=== PATIENT | female | born 1970 ===

== ENCOUNTER → 2019-11-22 | Outpatient (CLI) | payer OTHER | END | disposition home or self-care (01) | LOC: LAB EV 13:44 → LAB SHORT 13:44 | DX: J34.89 Other specified disorders of nose and nasal sinuses (principal) | CPT/HCPCS: 87070 ==

== ENCOUNTER 2023-12-15 11:38 | Emergency (ER) | payer OTHER ==
[~2023-12-15] VITALS: Ht 160 cm; Wt 69.8 kg
[2023-12-15 13:50] LABS: Source, Urine Clean Catch
[2023-12-15 13:57] LABS: BASOPHILS ABSOLUTE AUTO 0.03 K/mm3 (0.00-0.23); BASOPHILS PERCENT AUTO 0 % (0-2); EOSINOPHILS ABSOLUTE AUTO 0.04 K/mm3 (0.00-0.68); EOSINOPHILS PERCENT AUTO 1 % (0-6); Hematocrit 42.5 % (33.0-51.0); Hemoglobin 14.6 g/dL (11.5-16.0); IMMATURE GRAN ABSOLUTE AUTO 0.02 K/mm3 (0.00-0.10); IMMATURE GRAN PERCENT AUTO 0 % (0-1); LYMPHOCYTES ABSOLUTE AUTO 1.77 K/mm3 (0.84-5.20); LYMPHOCYTES PERCENT AUTO 25 % (21-46); MONOCYTES ABSOLUTE AUTO 0.38 K/mm3 (0.16-1.47); MONOCYTES PERCENT AUTO 5 % (4-13); Mean Corpuscular HGB 31.7 pg (26.0-34.0); Mean Corpuscular HGB Conc 34.4 g/dL (31.5-36.5); Mean Corpuscular Volume 92 fL (80-100); Mean Platelet Volume 10.6 fL (9.1-12.4); NEUTROPHILS ABSOLUTE AUTO 4.86 K/mm3 (1.96-9.15); NEUTROPHILS PERCENT AUTO 68 % (41-73); Platelet Count 196 K/mm3 (150-400); RDW Coefficient Variation 13.8 % (11.7-14.2); RDW Standard Deviation 46.4 fL (35.1-46.3); Red Blood Cell Count 4.61 M/mm3 (3.80-5.20)
[2023-12-15 14:18] LABS: Appearance, Urine Clear (Clear); Bilirubin, Urine Neg (Neg); Blood, Urine 2+ (Neg); Color, Urine Yellow (P-Yellow); Glucose Qualitative, Urine Neg (Neg); Ketones, Urine Neg (Neg); Leukocyte Esterase, Urine Neg (Neg); Nitrite, Urine Neg (Neg); Protein, Urine Neg (Neg); Specific Gravity, Urine 1.025 (1.003-1.022); Urobilinogen, Urine NORM (Normal)
[2023-12-15 14:26] LABS: Albumin, Blood 3.7 g/dL (3.4-5.0); Albumin/Globulin Ratio 1.1 (0.8-1.8); Bilirubin, Total 0.8 mg/dL (0.1-1.0); Bun/Creatinine Ratio 16.8 (12.0-20.0); Calcium, Blood 8.8 mg/dL (8.5-10.1); Creatinine, Blood 0.66 mg/dL (0.40-1.00); Globulin, Blood 3.5 g/dL (2.2-4.0); Potassium, Blood 3.1 mmol/L (3.5-5.5); Total Protein, Blood 7.2 g/dL (6.4-8.2)
[2023-12-15 14:33] LABS: Bacteria Many /hpf; Squamous Epithelial Cells Mod /hpf (Few)
[2023-12-15 20:51] VITALS: BP 126/88
== END 2023-12-15 20:51 | disposition home or self-care (01) ==
LOC: ER 11:38
PROVIDERS: Emergency Medicine
DX: R31.29 Other microscopic hematuria (principal); I10 Essential (primary) hypertension; M06.9 Rheumatoid arthritis, unspecified
CPT/HCPCS: 80053; 81001; 85025; 87086; 99284

== ENCOUNTER → 2024-09-07 | Outpatient (CLI) | payer OTHER ==
[2024-09-07 15:35] LABS: Bun/Creatinine Ratio 22.4 (12.0-20.0); Calcium, Blood 9.3 mg/dL (8.5-10.1); Creatinine, Blood 0.62 mg/dL (0.40-1.00); Luteinizing Hormone 44.2 mIU/ml; Potassium, Blood 3.4 mmol/L (3.5-5.5); Thyroid Stimulating Hormone 0.845 uIU/mL (0.360-4.800)
[2024-09-10 10:27] LABS: ESTRADIOL BY IMMUNOASSAY <20 pg/mL
[2024-09-10 18:53] LABS: HEPATITIS C AB CIA INTERP Negative (Negative); HEPATITIS C ANTIBODY CIA INDEX 0.08 IV
[2024-09-11 12:01] LABS: HIV 1,2 COMBO ANTIGEN/ANTIBODY Negative (Negative)
== END ==
LOC: LAB 14:07 → LAB SHORT 14:07
PROVIDERS: Family Medicine
DX: Z11.4 Encounter for screening for human immunodeficiency virus [HIV] (principal); Z11.59 Encounter for screening for other viral diseases; E87.6 Hypokalemia; N95.1 Menopausal and female climacteric states
CPT/HCPCS: 80048; 82670; 83001; 83002; 84443; 86803; 87389